=== PATIENT | male | born 1985 | race American Indian/Alaskan Native ===

== ENCOUNTER 2019-05-15 23:36 | Emergency (ER) | payer SELFPAY ==
[2019-05-15 23:59] VITALS: BP 147/75
--- NOTE | 2019-05-16 01:57 | Emergency Department Report ---
Chief Complaint: Dental/Oral Stated Complaint: TOOTHEACHE Time Seen by Provider: 05/16/19 01:37 - HPI History of Present Illness: 34 old male comes in complaining of a toothache. Patient went to the dentist today and was told that he can take yecy-[id number] pain medication and to follow-up next week. - ROS Review of Systems: Tooth pain no fever no chills - Exam Vital Signs: Vital Signs 05/15/19 23:57 Pulse Rate 46 L Respiratory 18 Rate Blood Pressure 147/75 O2 Sat by Pulse 100 Oximetry Physical Exam: Alert and oriented no acute distress. No gingival enlargement MSE screening note: Focused history and physical exam performed. Due to findings the following was ordered: Discussed the patient to take [id number]-[id number] ibuprofen and to keep his appointment with his dentist for next week. ED Disposition for MSE Disposition: MED SCREENING EXAM-LEFT Condition: Stable Referrals: KANDI ALCAZAR MD [Primary Care Provider] - 3-5 Days
== END 2019-05-16 02:00 | disposition left against medical advice (07) ==
LOC: ED 23:36
DX: K08.89 Other specified disorders of teeth and supporting structures (principal); Z53.21 Procedure and treatment not carried out due to patient leaving prior to being seen by health care provider